=== PATIENT | male | born 1985 | race Two or more races ===

== ENCOUNTER 2024-02-23 11:45 | Outpatient (REF) | payer MEDICAID, SELFPAY ==
--- NOTE | ~2024-02-23 | XR_ITS ---
EXAMINATION: XR CHEST CLINICAL INFORMATION: Cough with right posterior chest pain COMPARISON: None available. TECHNIQUE: 2 views of the chest were obtained. FINDINGS: There is no evidence of acute parenchymal disease, pneumothorax, or pleural effusion. Heart normal size. No evidence of pulmonary edema. Calcification of azygos lymph node is present. XR/XR chest 2V IMPRESSION: No acute disease.
== END 2024-02-23 11:46 | disposition home or self-care (01) ==
LOC: HO.HHCX 11:45
PROVIDERS: Visit Provider Emergency Medicine
DX: J45.21 Mild intermittent asthma with (acute) exacerbation (principal); R05.9 Cough, unspecified
CPT/HCPCS: 36415; 71046; 85379

== ENCOUNTER 2024-02-23 15:16 | Outpatient (REF) | payer MEDICAID, SELFPAY ==
[2024-02-23 16:32] LABS: D Dimer High Sensitivity < 150 NG/ML
== END 2024-02-23 15:17 | disposition home or self-care (01) ==
LOC: HO.LAB 15:16
PROVIDERS: Visit Provider Emergency Medicine
DX: J45.21 Mild intermittent asthma with (acute) exacerbation (principal)
CPT/HCPCS: 36415; 85379